=== PATIENT | male | born 1965 | race Caucasian/White ===

== ENCOUNTER 2020-05-22 12:12 | Observation (INO) | payer OTHER ==
[~2020-05-22] VITALS: Ht 177.8 cm; Wt 89.8 kg
--- NOTE | 2020-05-22 12:12 | NUR ---
Patient BIBA BLS accompanied by [place] [employer], transferred to bed 5. RN evaluating patient at bedside.
--- NOTE | 2020-05-22 12:16 | NUR ---
Dr. Sung is evaluating the patient at bedside.
[2020-05-22 12:23] VITALS: BP 138/86
--- NOTE | 2020-05-22 13:13 | NUR ---
[facility] technician at bedside.
--- NOTE | 2020-05-22 14:00 | NUR ---
ATTEMPTED TO DRAW BLOOD FROM PT. PT BECAME COMBATIVE AND WAS UNABLE TO OBTAIN BLOOD
--- NOTE | 2020-05-22 14:06 | NUR ---
BLOOD DRAWN BY LAB
[2020-05-22 14:26] LABS: BASOPHILS # (AUTO) 0.1 K/uL (0.00-0.22); BASOPHILS % (AUTO) 0.8 % (0.0-2.0); EOSINOPHILS % (AUTO) 0.2 % (0.0-4.0); HEMATOCRIT 42.1 % (36-52); HEMOGLOBIN 14.5 g/dL (12.0-18.0); LYMPHOCYTES # (AUTO) 0.9 K/uL (2.0-11.5); LYMPHOCYTES % (AUTO) 12.8 % (20.5-51.1); MEAN CORPUSCULAR HEMOGLOBIN 34 pg (27-31); MEAN CORPUSCULAR HGB CONC 34 g/dL (33-37); MEAN CORPUSCULAR VOLUME 99.6 fL (80-94); MONOCYTES # (AUTO) 0.7 K/uL (0.8-1.0); MONOCYTES % (AUTO) 9.5 % (1.7-9.3); NEUTROPHILS # (AUTO) 5.5 K/uL (1.8-7.7); NEUTROPHILS % (AUTO) 76.7 % (42.2-75.2); PLATELET COUNT (AUTO) 255 K/uL (140-450); RED BLOOD CELL COUNT(AUTO) 4.23 MIL/uL (4.20-6.10); RED CELL DISTRIBUTION WIDTH 14.5 % (11.6-13.7); WHITE BLOOD COUNT (AUTO) 7.1 K/uL (4.8-10.8)
[2020-05-22] MEDS ORDERED: OLANZapine 5 MG ODT PO ONE (14:35)
--- NOTE | 2020-05-22 14:52 | NUR ---
PT TAKEN TO CT VIA BEV
[2020-05-22 15:01] LABS: ACETAMINOPHEN 0.8 ug/ml (10-30); ALBUMIN 3.2 g/dL (3.4-5.0); ANION GAP 13.2 (8-16); ASPARTATE AMINOTRANSFERASE 55 U/L (15-37); CARBON DIOXIDE 25.1 mmol/L (21-32); CHLORIDE 107 mmol/L (98-107); CREATININE 0.9 mg/dL (0.6-1.3); GFR ARICAN-AMERICAN 112 mL/min (>90); GLUCOSE 92 mg/dL (74-106); POTASSIUM 3.3 mmol/L (3.5-5.1); SALICYLATE 7.3 mg/dL (2.8-20.0); SODIUM SERUM 142 mmol/L (136-145); TOTAL BILIRUBIN 0.9 mg/dL (0.0-1.0); UREA NITROGEN, BLOOD 11 mg/dL (7-18)
--- NOTE | 2020-05-22 15:51 | NUR ---
RESTING COMFORTABLY WITH EYES CLOSED AND SNORING RESPIRATIONS
--- NOTE | 2020-05-22 15:55 | NUR ---
TO BR VIA W/C FOR UA
--- NOTE | 2020-05-22 16:09 | NUR ---
URINE OBTAINED AND BROUGHT TO LAB COVID SWAB DONE AND BROUGHT TO LAB
[2020-05-22 16:16] LABS: APPEARANCE,URINE CLEAR (CLEAR); BILIRUBIN,URINE NEGATIVE (NEGATIVE); BLOOD, URINE NEGATIVE (NEGATIVE); COLOR,URINE YELLOW (YELLOW); LEUKOCYTE ESTERASE ,URINE NEGATIVE (NEGATIVE); NITRITE, URINE NEGATIVE (NEGATIVE); UGLUCOSE NEGATIVE (NEGATIVE)
[2020-05-22 16:38] LABS: BARBITURATE, URINE NEGATIVE ng/ml (NEG <=200); BENZODIAZEPINE, URINE NEGATIVE ng/mL (NEG <=200); CANNABINOID, URINE NEGATIVE ng/mL (NEG <=50); COCAINE, URINE NEGATIVE ng/mL (NEG <=300); OPIATE, URINE NEGATIVE ng/mL (NEG <=2000); PHENCYCLIDINE SCREEN,URINE NEGATIVE ng/mL (NEG <=25)
--- NOTE | 2020-05-22 17:10 | NUR ---
Patient appears to be resting comfortably in bed. Vital Signs within normal limits. Respirations even and unlabored.
--- NOTE | 2020-05-22 17:59 | NUR ---
CC has received packet.
--- NOTE | 2020-05-22 18:03 | NUR ---
Packet referred to: [facility]
--- NOTE | 2020-05-22 19:10 | NUR ---
RECEIVED REPORT FROM SUE MARIA FOR CONTINUATION OF CARE.
--- NOTE | 2020-05-22 20:00 | NUR ---
PT IS ASLEEP WITH HOB ELEVATED, VISIBLE RISE AND FALL OF CHEST, SIDE RAILS X2 FOR PT PROTECTION, BED IS LOCKED AND IN LOWEST POSITION.
--- NOTE | 2020-05-22 21:00 | NUR ---
PT IS RESTING IN HIS BED, HOB ELEVATED IN SEMI FOWLERS POSITION, BED IS LOCKED AND IN LOWEST POSITION, VISIBLE RISE AND FALL OF CHEST, PT IS NOT IN ANY ACUTE DISTRESS AT THIS TIME
--- NOTE | 2020-05-22 22:00 | NUR ---
PT IS STILL RESTING IN SEMI FOWLERS POSITION, BED IS LOCKED AND IN LOWEST POSITION, PT IS NOT IN ANY ACUTE DISTRESS AT THIS TIME, VISIBLE RISE AND FALL OF CHEST NOTED, SIDE RAILS X2 FOR PT PROTECTION.
--- NOTE | 2020-05-22 22:59 | NUR ---
Pt is sleeping, and not in any acute distress. Bed is locked and in lowest position, side rail x2 for pt safety.
--- NOTE | 2020-05-22 23:50 | NUR ---
PT REQUESTED AND WAS GIVEN A URINAL.
--- NOTE | 2020-05-23 00:45 | NUR ---
Pt is asleep on right side, visible rise and fall of chest noted, pt is not in any acute distress at this time, bed is locked and in lowest position, side rails x2 for pt safety.
--- NOTE | 2020-05-23 01:22 | NUR ---
Pt is sleep asleep and not in any acute distress at this time. Bed is locked and in lowest position. Visible rise and fall of chest noted.
--- NOTE | 2020-05-23 01:44 | NUR ---
Pt requested coffee and yeny crackers. Decaff coffee and yeny crackers were provided. Pt is sitting upright with HOB elevated and eating.
--- NOTE | 2020-05-23 01:45 | NUR ---
TELEPHSYCH REQUEST PER DR HAQUE
--- NOTE | 2020-05-23 01:49 | NUR ---
Pt asking where staff placed his belongings and where his belongings are located. Pt is upset that his belongings were taken away from him.
--- NOTE | 2020-05-23 01:50 | NUR ---
Pt became agitated after putting the telepsych computer infront of him and threw his coffee on the floor.
--- NOTE | 2020-05-23 01:51 | NUR ---
Pt is awake, shouting at nurses stating that he wants to be out of the hospital by 8 am to smoke his cigar and that people are in his house, RADHA Adkins at bedside speaking to pt, pt does not want to talk to psychiatry, pt is requesting that he leave the hospital.
--- NOTE | 2020-05-23 01:59 | NUR ---
Pt is shouting, stating that other people are living in his house, pt states that he does not know where he is and wants to go back to [place].
--- NOTE | 2020-05-23 02:02 | NUR ---
Pt is shouting stating that he doesn't want the telepsych computer in front of him.
--- NOTE | 2020-05-23 02:09 | NUR ---
Pt turned on his right side and covered his face away from the [employer] computer.
--- NOTE | 2020-05-23 02:11 | NUR ---
Pt is murmuring to self angrily.
--- NOTE | 2020-05-23 02:12 | NUR ---
Pt is shouting his birthday to himself and stating "how the hell am I supposed to know where to go now"
--- NOTE | 2020-05-23 02:18 | NUR ---
Pt is shouting requesting another cup of coffee, pt is stating that his last cup of coffee spilled and that he did not throw the last cup of coffee.
--- NOTE | 2020-05-23 02:28 | NUR ---
Pt is agitated and yelling. ERMD made aware.
[2020-05-23] MEDS ORDERED: LORazepam 2 MG/ML VIAL IM ONE (02:30)
[2020-05-23] MEDS ORDERED: HALOPERIDOL IM 5 MG/ML VIAL IM ONE (02:30)
--- NOTE | 2020-05-23 02:30 | NUR ---
Per ERMD for pt agitation, placed Haloperidol and lorzaepam at bedside for ERMD administration.
[2020-05-23] MEDS ORDERED: HALOPERIDOL IM 5 MG/ML VIAL ONE (02:33)
[2020-05-23] MEDS ORDERED: LORazepam 2 MG/ML VIAL ONE (02:34)
--- NOTE | 2020-05-23 02:49 | NUR ---
Pt is talking to self.
--- NOTE | 2020-05-23 03:09 | NUR ---
Pt placed on end tidal CO2 cannula.
--- NOTE | 2020-05-23 03:11 | NUR ---
Pt requested chocolate pudding, pt is now sitting upright with HOB elevated in high fowlers and eating chocolate pudding comfortably.
--- NOTE | 2020-05-23 03:20 | NUR ---
Pt is asleep in bed with HOB in high brown's position, end tidal CO2 @ 35, RR 17, and pt is snoring. Bed is locked and in lowest position, and side rails x2 for pt safety.
--- NOTE | 2020-05-23 04:00 | NUR ---
Pt is sleeping with HOB elevated to semi-fowlers position. Visible rise and fall of chest noted. End tidal CO2 measuring 36 with RR at 19. Bed is locked and in lowest position, side rails x 2 for patient safety.
--- NOTE | 2020-05-23 04:43 | NUR ---
Spoke with Tashi from the call center for [facility], he stated that there are still no beds available at this time.
--- NOTE | 2020-05-23 04:43 | NUR ---
Call Center notified ER nurse , there are still no vacancy at any of the designated facilities . Will continue to make calls to find placement.
--- NOTE | 2020-05-23 05:00 | NUR ---
Pt is asleep with HOB elevated, visible rise and fall of chest noted, bed is locked and in lowest position, audible snoring noted. side rails x2 for patient safety
--- NOTE | 2020-05-23 05:40 | NUR ---
Pt is laying comfortably on his right side, visible rise and fall of chest noted. Pt is not in any acute distress at this time. Pt has both side rails up for his safety. Pt has end tidal CO2 placed on him reading @ 36 with respirations at 17. The bed is locked and in it's lowest position.
--- NOTE | 2020-05-23 07:03 | NUR ---
Report given to SUE Manzanares for transfer of care.
--- NOTE | 2020-05-23 07:05 | NUR ---
Received report from SUE Nicholson. Transfer of care at this time
--- NOTE | 2020-05-23 07:31 | NUR ---
Pt resting, turns on own.
--- NOTE | 2020-05-23 07:56 | NUR ---
Pt given breakfast tray, seated upright positioned for comfort. VSS. Will continue to monitor
--- NOTE | 2020-05-23 09:50 | NUR ---
Pt positioned for comfort resting with eyes closed. visible rise and fall of the chest. VSS
--- NOTE | 2020-05-23 11:00 | NUR ---
22G IV placed to right hand, good blood return
--- NOTE | 2020-05-23 11:33 | NUR ---
Pt given coffee, seated upright positioned for comfort. VSS. Will continue to monitor
--- NOTE | 2020-05-23 11:51 | NUR ---
Provided pt with lunch tray, HOB elevated, patient repositioned for comfort. VSS, will continue to monitor.
--- NOTE | 2020-05-23 11:57 | NUR ---
Dr. Ignacio is evaluating the patient at bedside.
[2020-05-23] MEDS ORDERED: ONDANSETRON 4 MG/2 ML VIAL IVP PRN (12:10)
[2020-05-23] MEDS ORDERED: LORazepam 2 MG/ML VIAL IVP PRN (12:10)
[2020-05-23] MEDS ORDERED: ACETAMINOPHEN 325 MG TAB PO PRN (12:10)
--- NOTE | 2020-05-23 12:32 | NUR ---
Report called to Sherrell in [facility].
--- NOTE | 2020-05-23 12:33 | NUR ---
Patient will be admitted to care of Dr Ignacio. Admited to [facility]. Will go to [id number]. Belongings list completed. Report to SUE Wynne.
[2020-05-23 12:45] VITALS: BP 116/69
--- NOTE | 2020-05-23 12:45 | NUR ---
RECEIVED REPORT FROM BONIFACIO VIA PHONE. PT ASSISTED INTO BED. ABLE TO MAKE NEEDS KNOWN. RESPIRATIONS EVEN AND UNLABORED WITH NO SOB OR RESPIRATORY DISTRESS. SKIN WARM AND DRY TO TOUCH. IV SITE IN R HAND 22G IS CLEAN, DRY, AND INTACT. MRSA COLLECTED AND VITAL SIGNS OBTAINED. WILL CONTINUE TO MONITOR
--- NOTE | 2020-05-23 14:04 | NUR ---
PATIENT URINATING ON THE FLOOR DESPITE HAVING URINAL AT BEDSIDE. PT STATED THAT HE DID NOT KNOW THAT HE HAD A URINAL NEXT TO HIM. SITTER AT BEDSIDE. WILL CONTINUE TO MONITOR
--- NOTE | 2020-05-23 15:45 | NUR ---
HOURLY ROUNDING. PT RESTING IN BED. ABLE TO MAKE NEEDS KNOWN. PT HAS EPISODES OF CONFUSION. PT STATES THAT HE NEEDS TO GO BACK TO HIS HOUSE WHERE [employer] PEOPLE AND CHILDREN ARE LIVING IN. WILL CONTINUE TO MONITOR
--- NOTE | 2020-05-23 17:30 | NUR ---
PT EATING LUNCH. NO DISTRESS NOTED AT THIS TIME. SITTER MONITORING PATIENT. WILL CONTINUE TO MONITOR
--- NOTE | 2020-05-23 19:21 | NUR ---
RECEIVED BEDSIDE REPORT FROM OTONIEL ROGERS DAYSHIFT NURSE FOR CONTINUITY OF CARE, PT IN BED SLEEPING 1:1 SITTER AT BEDSIDE.
--- NOTE | 2020-05-23 19:33 | NUR ---
BEDSIDE ENDORSEMENT GIVEN TO NIGHTSHIFT NURSE TO CONTINUE W/ POC. PATIENT IS STABLE.
--- NOTE | 2020-05-23 20:30 | NUR ---
PT SITTING UP IN BED AND IS AWAKE AND ALERT. PT IS AOX3, HE IS ALERT TO PERSON AND PLACE BUT NOT TIME AND DATE. PT P B/P ON AND OFF IS COMPLAINING ABOUT BEING ON A HOLD. PT ALSO CONTINUES TO ASK ABOUT HIS BELONGINGS AND HE/ 02 CONTINUES TO BE REDIRECTED THAT HIS BELONGINGS IS IN SECURITY. HE DENIES ANY PAIN. PT HAS 2 COIN SIZED SCABS ON FOREHEAD AND AN IV SITE R HAND 22 GUAGE INTACT AND SALINE LOCKED. V/S FOLLOWS: T 97.2 P 98 R 20 B/P 115/71 02 95% ON ROOM AIR. ALL FALLS PROTOCOL IN PLACE, AND 1:1 SITTER AT BEDSIDE.
--- NOTE | 2020-05-23 21:15 | NUR ---
RECEIVED A CALL FROM ORLIN FROM [facility] REGARDING PT PLACEMENT. ILENE WILL FOLLOW UP WITH AM SHIFT, IN THE MORNING. ALL FALLS AND PROTOCOL IN PLACE AND 1:1 SITTER AT BEDSIDE.
[2020-05-23] MEDS ORDERED: POTASSIUM CHLORIDE 10 MEQ TABER PO SCH (22:30)
--- NOTE | 2020-05-23 22:30 | NUR ---
PT CONTINUES TO ASK ABOUT HIS BELONGINGS AND WHEN HE CAN GO HOME, PT REMINDED THAT HE IS ON A 5150 HOLD BY THE POLICE AND THAT HE CANNOT LEAVE AT THIS TIME. PT EVENTUALLY VERBALIZED UNDERSTANDING. MD GIBSON CAR PINCHER FOR PRIMARY MD CRUZ WAS CALLED DUE TO PT POTASSIUM LOW AT 3.3, MD GIBSON ORDERED 40 MEQ POTASSIUM CHLORIDE PO X1. PT ALSO RECEIVED REQUESTED SANDWICH AND COFFEE. ALL FALLS PROTOCOL IN PLACE AND 1:1 SITTER AT BEDSIDE.
--- NOTE | 2020-05-24 | NUR ---
PT IN BED RESTING BUT AROUSABLE TO NAME AND NAME AND LIGHT TOUCH. V/S FOLLOWS: T 97.5 P 94 R 17 B/P 115/79 02 93% ON ROOM AIR. ALL FALLS PROTOCOLS AND 1:1 SITTER AT BEDSIDE.
--- NOTE | 2020-05-24 00:56 | NUR ---
Call Center made aware pt at this time is in need Discharge orders from an MD in order to place pt , per floor nurse Order can be obtain in the AM . Will endorsed to AM shift Call Center to follow up for place.
--- NOTE | 2020-05-24 02:00 | NUR ---
PT AWAKE SITTING IN BED, PT PULLED OUT IV SITE, CANNULA INTACT. WILL REPLACE ANOTHER IV SITE LATER. PT HAS NO IV FLUID ORDERED AT THIS TIME.
--- NOTE | 2020-05-24 05:48 | NUR ---
PT REFUSES LAB DRAWS THIS AM. HE ALSO REFUSES A IV SITE AT THIS TIME.
--- NOTE | 2020-05-24 07:35 | NUR ---
RECEIVED PT FROM PACKAGER NURSE, PT IS AWAKE IN BED WATCHING TV, NO SIGNS OF DISTRESS NOTED, SAFETY AND FALL PRECAUTIONS IN PLACE,WILL CONTINUE TO MONITOR.
--- NOTE | 2020-05-24 07:41 | NUR ---
RECEIVED A CALL FROM EDU, [facility] AND INFORMED THAT THERE IS AN AVAILABLE BED FOR PT, PT WILL GO TO [facility], [facility], TO [address], [address] AND ACCEPTING DOCTOR IS DR. MANCUSO, TELEPHONE NO. TO CALL FOR REPORT IS [phone], WILL INFORM CM.
--- NOTE | 2020-05-24 07:45 | NUR ---
PT WAS ASKED TO HAVE REINSERTION OF IV, PT REFUSED, WILL NOTIFY
--- NOTE | 2020-05-24 08:56 | NUR ---
PT WAS GIVEN THE SCHEDULED AM MEDICATION, PARAMETER CHECKED, WILL MONITOR PT.
[2020-05-24] MEDS ORDERED: ENOXAPARIN 40 MG/0.4 ML SYR SUBQ SCH (09:00)
--- NOTE | 2020-05-24 09:15 | NUR ---
SPOKE TO DR. CRUZ AND INFORMED MD THAT THERE IS A BED AVAILABLE FOR PT IN [facility], AND WAS TOLD THAT INFORMATION WAS RELAYED TO CM, MD SAID THAT HE WILL BE COMING THIS AFTERNOON, GAVE A TELEPHONE ORDER TO GIVE PT K-DUR 40MEQ FOR K LEVEL OF 3.3, ORDERS READ BACK AND VERIFIED AND WILL BE CARRIED OUT.
--- NOTE | 2020-05-24 09:18 | NUR ---
PATIENT HAS BEEN SCREENED AND CATEGORIZED LOW NUTRITION RISK. PATIENT WILL BE SEEN WITHIN 7 DAYS OF ADMISSION. 05/29/[address]
--- NOTE | 2020-05-24 09:20 | NUR ---
ARCHANA BESTNER: SPOKE TO SUE HUNT PATIENT HAS BEEN ACCEPTED TO [facility]. [address] [place] [address] MANCUSO. SET UP WILL CALL TRANSPORTATION WITH [facility]. Addendum: 05/24/20 at 1211 by Lenka Gonzales CM ARCHANA GONZALEZ: TRANSPORTATION SET FOR 2:00 PM NOTIFIED SUE HUNT
[2020-05-24] MEDS ORDERED: POTASSIUM CHLORIDE 10 MEQ TABER PO SCH (10:00)
--- NOTE | 2020-05-24 11:17 | NUR ---
CALLED DR. ENRIQUEZ AND INFORMED MD IF DISCHARGING PT AND MD SAID THAT HE IS IN [place] AND WILL PROCESS DISCHARGE IN AN HOUR. MARY GARCIA WAS INFORMED.
--- NOTE | 2020-05-24 12:50 | NUR ---
[facility] AND GAVE REPORT TO SUE HODGE, REGARDING THE CARE MANAGEMENT DONE TO PT AND WAS INFORMED THAT PT WILL BE PLACE IN [id number], UNDER THE SERVICE OF DR. MANCUSO AND DULITE MACHINE BLUER TIME WILL BE MOIZ 1400 VIA [facility]. RN VERBALIZED UNDERSTANDING. Addendum: 05/24/20 at 1527 by Chelly Rivas RN THE CONTACT NO FOR THE ABOVE NOTE IS [phone]
--- NOTE | 2020-05-24 14:40 | NUR ---
DISCHARGED PT TO [facility], ACCOMPANIED BY [facility]SPORT, ARM BAND REMOVED, REPORT WAS GIVEN TO TRANSPORT PERSONNEL, PT IS STABLE AT THIS TIME.
== END 2020-05-24 14:40 ==
LOC: MED 12:12 → MTU 05-23 12:10 → INTOOBSV 05-23 12:10 → MTU 05-23 12:21
PROVIDERS: ADMIT Hospitalist; ATTEND Hospitalist
DX: F29 Unspecified psychosis not due to a substance or known physiological condition (principal); Z20.828 Contact with and (suspected) exposure to other viral communicable diseases; F20.9 Schizophrenia, unspecified; F31.9 Bipolar disorder, unspecified; R45.1 Restlessness and agitation; F22 Delusional disorders; J45.909 Unspecified asthma, uncomplicated; Z79.899 Other long term (current) drug therapy
CPT/HCPCS: 36415; 70450; 73610; 80053; 80305; 81003; 85025; 87081; 87426; 96372; 99285; G0378; G0482; J1630; J1650; J2060; Q0092; G0480